=== PATIENT | female | born 1980 | race Caucasian/White ===

== ENCOUNTER → 2016-10-16 | Outpatient (CLI) | payer OTHER ==
--- NOTE | ~2016-10-16 | MR18 ---
[facility] A Service [facility] RADIOLOGY TEXT RESULTS PATIENT: JAJA MELVIN LOCATION: [facility] : 78 UNIT #: [id number] AGE: [address]: LORRI CRAIG APRN SEX: F ORDER DR: [id number] [id number] O MR#: [id number] Acc #: [id number] NAME: JAJA MELVIN : 1980 SEX: F STUDY DATE/TIME: 10/16/2016 13:08 UNIT: [facility] ROOM: STUDY DESCRIPTION: MR Brain Wo Contrast Attending Physician: Lorri Craig Aprn Referring Physician: Lorri Craig Aprn Ordering Physician: Lorri Craig Aprn Primary Care Physician: Lorri Craig Aprn MRI CENTER REPORT This report is preliminary unless electronic signature is present. EXAM MRI of the brain without contrast dated 10/16/2016 COMPARISON None HISTORY Migraines in high school. Increasing atypical headaches for the last 2-3 weeks. TECHNIQUE Multisequence, multiplanar imaging of the brain was obtained without contrast. FINDINGS No acute stroke, space occupying intracranial mass, mass effect, midline shift or hydrocephalus. Age-appropriate parenchymal volume is seen. No obvious congenital malformations could be identified in these thick slices. Thick slices through the sella with the pituitary gland, pineal region and upper cervical spine are within normal limits. Minimal S-shaped nasal septal deviation is seen. Paranasal sinuses, orbits of the ocular structures and mastoids do not demonstrate any significant abnormality. IMPRESSION No significant intracranial abnormality. Dictated by... Tram Tamayo M.D. [facility] A Service of [facility] RADIOLOGY TEXT RESULTS PATIENT: JAJA MELVIN LOCATION: [facility] : 78 UNIT #: [id number] AGE: [address]: LORRI CRAIG APRN SEX: F ORDER DR: THIS IS AN ELECTRONICALLY VERIFIED REPORT Tram Tamayo M.D. at 10/18/2016 12:38 PM CPR/to TD: 10/16/2016 19:08 JOB #: [id number] MRI CENTER REPORT Page 1 of 1
== END | disposition home or self-care (01) ==
LOC: SMRI 12:45
DX: G43.909 Migraine, unspecified, not intractable, without status migrainosus (principal)
CPT/HCPCS: 70551